=== PATIENT | female | born 1955 | race Caucasian/White ===

== ENCOUNTER → 2024-10-14 10:24 | Outpatient (CLI) | payer BC, SELFPAY ==
--- NOTE | 2024-10-14 10:26 | DI.RAD.S_ITS ---
PROCEDURE: XR FINGER LT MIN 2V INDICATIONS: pinkie caught in door 1 wk ago, pain middle digit TECHNIQUE: AP hand, 2 views of the left 5th finger(s) acquired. COMPARISON: None. FINDINGS: Severe osteopenia. Minimally impacted fracture at the base of the 5th proximal phalanx. Joint spaces are well maintained. IMPRESSION: Fifth proximal phalangeal base fracture. Dictated by: Patty Rankin M.D. on 10/14/2024 at 15:17 Approved by: Patty Rankin M.D. on 10/14/2024 at 15:19
== END ==
PROVIDERS: Referring Provider Physician Assistant; Visit Provider Physician Assistant
DX: S62.647A Nondisplaced fracture of proximal phalanx of left little finger, initial encounter for closed fracture (principal); W23.2XXA Caught, crushed, jammed or pinched between a moving and stationary object, initial encounter
CPT/HCPCS: 73140